=== PATIENT | male | born 1945 | race Caucasian/White ===

== ENCOUNTER 2021-04-07 15:49 | Emergency (ER) | payer SELFPAY ==
[~2021-04-07] VITALS: Ht 188 cm; Wt 68.2 kg
[2021-04-07 16:18] VITALS: BP 166/105
[2021-04-07] MEDS ORDERED: HYDROcodone/acetaminophen 10/325mg tab PO ONE (16:30)
[2021-04-07] MEDS ORDERED: CLIN150C8 PO (16:33)
[2021-04-07] MEDS ORDERED: HYDR-3965 PO (16:39)
--- NOTE | 2021-04-07 16:45 | NUR ---
NORCO 10/325MG ORDERED FOR PT'S DENTAL PAIN. PROVIDER NOTIFIED THAT PT HAD HAD 1300MG TYLENOL 20 MIN PRIOR TO ER VISIT. PROVIDER DC THE MEDICATION ORDER AND OPTED TO GIVE PT AN RX FOR 2 NORCO 10/325MG FOR HOME. PT'S ATTEMTED TO ASK FOR THE ADDITIONAL NORCO TO TAKE HOME, WAS INFORMED THAT THE ORDER WAS DISCONTINUED AND THAT I COULD NOT GIVE IT TO HER. PT AND LEFT AFTER DC.
== END 2021-04-07 17:00 | disposition home or self-care (01) ==
LOC: ER 15:50
DX: K08.89 Other specified disorders of teeth and supporting structures (principal); Z88.0 Allergy status to penicillin; Z79.2 Long term (current) use of antibiotics; Z79.899 Other long term (current) drug therapy
CPT/HCPCS: 99283

== ENCOUNTER → 2025-02-03 | Day surgery (SDC) | payer MEDICARE ==
[2025-02-01 13:57] LABS: BASOPHILS # (AUTO) 0.1 X10'3 (0-0.2); BASOPHILS % (AUTO) 1.2 % (0-1); EOSINOPHILS # (AUTO) 0.2 X10'3 (0-0.9); EOSINOPHILS % (AUTO) 3.2 % (0-6); LYMPHOCYTES # (AUTO) 1.5 X10'3 (1.1-4.8); LYMPHOCYTES % (AUTO) 19.5 % (21-51); MEAN CORPUSCULAR HEMOGLOBIN 27.9 PG (27.0-31.0); MEAN CORPUSCULAR HGB CONC 33.3 g/dL (33.0-36.5); MEAN CORPUSCULAR VOLUME 83.9 FL (78-98); MEAN PLATELET VOLUME 7.3 FL (7.4-10.4); MONOCYTES # (AUTO) 0.6 X10'3 (0-0.9); MONOCYTES % (AUTO) 8.3 % (2-12); NEUTROPHILS # (AUTO) 5.1 X10'3 (1.8-7.7); NEUTROPHILS % (AUTO) 67.8 % (42-75); PRE OP HEMATOCRIT 43.6 % (42.0-52.0); PRE OP HEMOGLOBIN 14.5 g/dL (14.0-17.9); PRE OP PLATELET COUNT 309 X10'3 (140-440); PRE OP WHITE BLOOD COUNT 7.5 10'3 (4.8-10.8); RED CELL DISTRIBUTION WIDTH 14.1 % (11.5-14.5)
[2025-02-01 14:46] LABS: ALBUMIN 4.1 G/DL (3.4-5.0); ALBUMIN/GLOBULIN RATIO 1.6 (1.1-1.5); ALKALINE PHOSPHATASE 59 IU/L (46-116); BLOOD UREA NITROGEN 26 MG/DL (7-18); BUN/CREATININE RATIO 32.9 (10.0-20.0); CALCIUM 9.2 MG/DL (8.5-10.1); CHLORIDE 103 MMOL/L (99-107); CREATININE 0.79 MG/DL (0.60-1.10); PRE OP ALT 46 U/L (30-65); PRE OP ANION GAP 11 (8-16); PRE OP AST 15 U/L (10-37); PRE OP BILIRUB, TOTAL 0.3 MG/DL (0.0-1.0); PRE OP GLUCOSE 177 MG/DL (70-104); PRE OP POTASSIUM 4.5 MMOL/L (3.4-5.1); PRE OP SODIUM 140 MMOL/L (135-145); TOTAL CARBON DIOXIDE 26.3 MMOL/L (24-32); TOTAL PROTEIN 6.6 G/DL (6.4-8.2); eGFR > 90 ML/MIN
[~2025-02-03] VITALS: Ht 180.3 cm; Wt 81.1 kg
[2025-02-03] VITALS (9 sets, daily range): BP systolic 146–169; BP diastolic 81–101; PULSE 77–88; RESP 11–16; TEMP 97.3; O2SAT 97–100
[~2025-02-03] MED LIST: ATOR10TA PO; BUPIVAcaine 2.5mg/ml inj 50ml vial (contains preservative) ONE; CYCL-1 PO; DAPA10TA PO; HYDROcodone/acetaminophen 5mg/325mg tablet PO PRN; HYDROmorphone/PF 0.2 MG/ML SYRINGE IV PRN; LIDOcaine 1% 30ml preserv. free vial ONE; LISI5TAB22 PO; METF-436 PO; TRAM50TA2 PO; [UNRECOGNIZED DRUG - OTHER]; fentaNYL/PF 50MCG/1 ML 2ML syringe ONE; labetalol 20mg/4ml (5mg/ml) syringe IV PRN; meperidine/PF 100mg/ml syringe IV PRN; midazolam 1 mg/ML 2ml injection ONE; morphine 2 MG/ML inj. syringe IV PRN; morphine 4 MG/ML inj SYRINge IV PRN; ondansetron/PF 4mg/2ml inj IV PRN; propofol inj 20 ML IV ONE; ringers solution, lacted 1,000 ML IV SCH; sevoflurane 250ml liquid IH ONE
[2025-02-03] MEDS: clindamycin-Cleocin 900mg/D5W 50 ML IV ONE (05:30)
[2025-02-03] MEDS: ringers solution, lacted 1,000 ML IV SCH (12:24)
[2025-02-03] MEDS: famotidine 20mg tablet PO ONE (12:24)
== END | disposition home or self-care (01) ==
LOC: PAS 11:36
PROVIDERS: ATTEND Surgery
DX: K42.9 Umbilical hernia without obstruction or gangrene (principal); I10 Essential (primary) hypertension; E11.9 Type 2 diabetes mellitus without complications; F12.90 Cannabis use, unspecified, uncomplicated; Z98.890 Other specified postprocedural states; Z88.0 Allergy status to penicillin; Z79.899 Other long term (current) drug therapy
CPT/HCPCS: 36415; 49593; 80053; 82948; 85025; 93005; A4618; A7000; C1781; J2003; J2250; J2405; J2704; J3010; J3490; J7030; J7120; Z7506; Z7512; Z7610